=== PATIENT | male | born 1980 | race African-American/Black ===

== ENCOUNTER 2018-09-16 19:03 | Emergency (ER) | payer BC, SELFPAY ==
[2018-09-16 19:03] VITALS: BP 136/87; PULSE 74; RESP 14; O2SAT 100
[2018-09-16 19:04] VITALS: BP 136/87; PULSE 98; RESP 14; TEMP 37; O2SAT 100; BMI 20.9
--- NOTE | 2018-09-16 19:22 | RAD_ITS ---
STUDY: X-RAY CHEST REASON FOR EXAM: Male, 38 years old. Chest pain. TECHNIQUE: Single AP portable upright view of the chest. COMPARISON: PA and lateral chest x-ray August 21, 2016. FINDINGS: The lungs are clear and expanded. There is no demonstrated pleural abnormality. Normal size heart. Normal mediastinum and lacey. Normal visualized pulmonary arteries. Normal visualized aortic arch and descending thoracic aorta. There are stable degenerative changes of the lowermost thoracic spine. Normal visualized ribs, clavicles, and shoulders. There is no demonstrated abnormality of the visualized soft tissue structures of the upper abdomen. RAD/Chest 1 View (Portable) IMPRESSION: No acute cardiopulmonary disease. Electronically Signed: Mark Donato MD at 19:36 EDT , Service support ,
--- NOTE | 2018-09-16 19:22 | EKG12_ITS ---
Test Reason : CP Blood Pressure : / mmHG Vent. Rate : 086 BPM Atrial Rate : 086 BPM P-R Int : 140 ms QRS Dur : 070 ms QT Int : 338 ms P-R-T Axes : 070 016 061 degrees QTc Int : 404 ms Normal sinus rhythm Normal ECG Confirmed by EITAN VELASQUEZ, IVAN ([id number]), society editor ISAAC ALMEIDA ([id number] on 09/20/2018 12:45:58 PM Referred By: CONCHITA
[2018-09-16] MEDS: 0.9% Normal Saline 1,000 ML 1000 ML IV (19:28)
[2018-09-16] MEDS: Morphine 4 MG/ML Syringe IV (19:28)
[2018-09-16] MEDS: Aspirin 81 MG TAB.CHEW 324 MG PO (19:28)
[2018-09-16] MEDS: Ondansetron 4 MG/2 ML Vial IV (19:28)
[2018-09-16 19:40] LABS: Absolute Lymphocyte Count 2.22 X10^3/ul (0.83-4.51); Absolute Neutrophil Count 3.6 X10^3/uL (2.0-7.7); Basophil# 0.02 X10^3/uL; Basophil% 0.3 % (0-1); Eosinophil# 0.19 X10^3/uL; Eosinophils% 2.9 % (0-5); Hematocrit 43.5 % (40-54); Hemoglobin 14.9 g/dl (13.0-16.5); Lymphocyte # 2.22 X10^3/ul (4.0); Lymphocyte % 33.5 % (19-41); Mean Corp Hgb Conc 34.3 g/gl (32-36); Mean Corpuscular Hgb 32.7 pg (27.0-32.0); Mean Corpuscular Volume 95.6 fL (80-94); Mean Platelet Vol. 10.1 fl (6.2-12.0); Monocyte# 0.64 X10^3/uL; Monocyte% 9.7 % (0-10); Neutrophil # 3.55 X10^3/uL (2.7-7.7); Neutrophil % 53.4 % (47-70); Platelet Count 227 K/mm3 (150-450); RBC Distribution Width CV 12.9 % (11.6-14.6); RBC Distribution Width SD 44.2 fl (35.1-43.9); Red Blood Count 4.55 M/mm3 (4.6-6.2); White Blood Count 6.6 K/mm3 (4.4-11.0)
[2018-09-16 19:46] LABS: POSITIVE COUNT NO; POSITIVE DIFFERENTIAL NO; POSITIVE MORPHOLOGY NO
[2018-09-16 19:59] LABS: BUN 19 mg/dL (7-18); Creatinine, Serum 1.15 mg/dL (0.70-1.30); EST Glomerular Filtration Rate 76 mL/min (>60); Est Glom Filt Rate - Afr Amer 91 mL/min (>60); Estimated Creatinine Clearance 79.46 ml/min; Glucose 64 mg/dL (74-106)
[2018-09-16 20:00] LABS: Anion Gap 6 (5-15); BUN/Creat Ratio 16.5 RATIO (10-20); Calcium,Total 8.9 mg/dL (8.5-10.1); Chloride 109 mmol/L (98-107); Potassium 3.6 mmol/L (3.5-5.1); Sodium Level 145 mmol/L (136-145)
--- NOTE | 2018-09-16 20:05 | ED.VISSUMM ---
- ER Visit Summary Date of Service: 09/16/18 Chief Complaint: Chest pain History of Present Illness: The patient is a 38 M with no primary care physician. He reports that he has not felt well for the past 2 days and feels as though his asthma has been acting up. However, 30 minutes ago he had the abrupt onset of a stabbing pain left side of his chest. Reports pain is 10 out of 10 in severity. Is worsened by movement and relieved by laying flat. Reports he is nauseated with it and very short of breath. States he also felt lightheaded at the onset of this. Patient has no personal family history of DVT. No recent travel. No ankle swelling or calf pain. Physical Examination: Vitals: Stable. Afebrile. General: Well-nourished and well-developed. Head: Normocephalic atraumatic. Neck: Supple, no lymphadenopathy. No JVD. Nontender. Cardiovascular: Regular rate and rhythm. No murmurs. Respiratory: No respiratory distress. Clear to auscultation bilaterally. Abdominal: Soft, nontender, nondistended, normal bowel sounds. No guarding, rebound, or peritoneal signs. Back: Nontender. Extremities: Nontender, no edema. Skin: Normal color, no rash. Neurologic: Alert and oriented ?3. Cranial nerves II through XII are intact. Normal strength and sensation. Psych: Normal affect. Test Results: EKG is sinus at 86 no acute changes. Is unchanged from 2012. Troponins negative. Chem-7 more for chloride 109, BUN 19, glucose of 64. CBC is normal. Chest x-ray is normal. Emergency Department Course and Treatment: Patient was given dose of aspirin p.o. Is given morphine and Zofran IV. He left prior to the labs returning. Treatment Plan: Patient left prior to completion of treatment. Disposition: Elopement Impression: 1. Atypical chest pain. 2. Elopement. This note was generated with [email or web address] dictation software. It may contain incorrect words, spelling, and punctuation that were not noted in review of the chart prior to signing ED Disposition - Plan for ED Patient: Disposition: Home or Assisted Living Chief Complaint: Chest Pain Referrals: Care Physician,No Primary [Primary Care Provider] -
--- NOTE | 2018-09-16 20:21 | ED.RN ---
AUXILIARY PLANT OPERATOR ON SHIFT NOTICED PTS GOWN SITTING ON THE BED. PATIENTS CURTAIN WAS PULLED. THIS RN AND AUXILIARY PLANT OPERATOR WALK IN TO ROOM THAT IS EMPTY WITH ALL MONITOR LEADS ON THE BED AND IV CATHETER INTACT WITH ATTACHED TUBING.
--- NOTE | 2018-09-16 20:23 | ED.RN ---
NOTIFIED OF PATIENTS ELOPMENT
== END 2018-09-16 20:23 | disposition home or self-care (01) ==
PROVIDERS: Emergency Provider Emergency Medicine
DX: R07.9 Chest pain, unspecified (principal); J45.909 Unspecified asthma, uncomplicated; Z72.0 Tobacco use; Z79.51 Long term (current) use of inhaled steroids
CPT/HCPCS: 71045; 80048; 84484; 85025; 93005; 96361; 96374; 96375; 99283; A4216; J2405